=== PATIENT | female | born 1995 | race Caucasian/White ===

== ENCOUNTER → 2017-12-04 14:58 | Outpatient (CLI) | payer BC, SELFPAY | PROVIDERS: Family Provider Family Medicine; PCP Family Medicine; Visit Provider Specialist | DX: R30.0 Dysuria (principal) | CPT/HCPCS: 87086 ==

== ENCOUNTER → 2017-12-22 10:57 | Outpatient (CLI) | payer BC, SELFPAY ==
[2017-12-22 11:34] LABS: Appearance Urine UA CLEAR; Bilirubin Urine UA NEGATIVE (NEGATIVE); Color Urine UA YELLOW; Glucose Urine UA TRACE g/dL (Normal); Ketones Urine UA TRACE (NEGATIVE); Leukocyte Esterase Urine UA NEGATIVE (NEGATIVE); Nitrite Urine UA Negative (Negative); Occult Blood Urine UA NEGATIVE (Negative); Protein Urine UA NEGATIVE (Negative); Specific Gravity Urine UA 1.025 (1.000-1.035); Urobilinogen Urine UA 0.2 E.U./dL (0.2); pH Urine UA 5.5 (4.5-8.0)
[2017-12-22 11:40] LABS: Add Manual Diff / Slide Review NO; Basophils Percent Auto 0.5 % (0-2); Eosinophils Percent Auto 5.2 % (2-4); Hematocrit 36.5 % (36-46); Hemoglobin 12.7 g/dL (12.0-16.0); Lymphocytes Percent Auto 14.8 % (25-40); Mean Corpuscular HGB Conc 34.8 % (30-36); Mean Corpuscular Hemoglobin 30.9 PG (26-34); Mean Corpuscular Volume 88.8 fL (80-100); Monocytes Percent Auto 6.3 % (3-14); Neutrophils Absolute Auto 4500 /uL (3000-5900); Neutrophils Percent Auto 73.2 % (50-75); Platelet Count 187 X10^3/uL (150-400); Red Blood Cell Count 4.11 X10^6/uL (4.0-5.2); Red Cell Distribution Width 12.5 % (11.6-14.8); White Blood Cell Count 6.1 X10^3/uL (4.5-11.0)
[2017-12-22 12:25] LABS: Free T3, Triiodothyronine Free 3.33 pg/mL (2.77-5.27); Free T4, Direct Thyroxine 1.03 ng/dL (0.78-2.19)
[2017-12-22 12:39] LABS: Thyroid Stimulating Hormone 0.46 uIU/mL (0.47-4.68)
[2017-12-22 16:19] LABS: Hepatitis B Surface Antigen NEGATIVE s/c (NEGATIVE); Rubella Antibody IgG 8.8 IU/mL (>15)
[2017-12-22 16:33] LABS: HIV 1 and 2 Antibody NEGATIVE (NEGATIVE); Hep C Virus Ab w/Reflex Quant NEGATIVE s/c (NEGATIVE)
[2017-12-23 13:34] LABS: HSV 2 IGG AB < 0.90 index (< 0.90)
[2017-12-29 11:51] LABS: Rapid Plasma Reagin NON-REACTIVE
== END ==
PROVIDERS: PCP Family Medicine; Visit Provider Specialist
DX: Z34.81 Encounter for supervision of other normal pregnancy, first trimester (principal); Z3A.01 Less than 8 weeks gestation of pregnancy
CPT/HCPCS: 36415; 80055; 81003; 84439; 84443; 84481; 86695; 86696; 86703; 86787; 86803; 86850; 86900; 86901; 87086

== ENCOUNTER → 2018-01-21 13:37 | Oncology outpatient (ONC) | payer BC, SELFPAY ==
[2018-01-21 14:13] VITALS: BP 113/68; PULSE 92; RESP 16; TEMP 36.8
[2018-01-21] MEDS: ONDANSETRON 4 MG/2 ML INJ IV (14:13)
[2018-01-21] MEDS: LACTATED RINGERS 1,000 ML 500 ML IV (14:13)
== END ==
LOC: ONC 13:38
PROVIDERS: Family Provider Family Medicine; PCP Family Medicine; Visit Provider Specialist
DX: O21.1 Hyperemesis gravidarum with metabolic disturbance (principal)
CPT/HCPCS: 96361; 96374; 96375; J2405

== ENCOUNTER → 2018-03-15 12:05 | Outpatient (CLI) | payer BC, SELFPAY ==
--- NOTE | 2018-03-15 12:08 | DI.US.S_ITS ---
PROCEDURE: US THYROID INDICATIONS: THYROMEGALY, ABNORMAL LABS TECHNIQUE: Real-time scanning was performed of the thyroid gland, with image documentation. COMPARISON: None. FINDINGS: Right: Thyroid lobe measures 4.8 x 1.2 x 1.5 cm, and is homogeneous in echotexture. Sub-5 mm complex nodule within the midpole which is solid, hypoechoic, smooth and no internal echogenic foci present. TI-RADS classification is 4 which is moderately suspicious. Left: Thyroid lobe measures 5.7 x 1.3 x 1 6 cm, and is homogenous in echotexture. Isthmus: 3.0 mm thick. IMPRESSION: Sub-5 mm solid nodule within the midpole of the right thyroid otherwise normal thyroid gland. Given the small size, no followup necessary. Dictated by: Kirk WILLSON Interpreted: Se Vasquez MD on 03/15/2018 at 13:58 Approved by: Kaila Salinas M.D. on 03/17/2018 at 9:49
--- NOTE | 2018-03-15 12:08 | DI.US.S_ITS ---
PROCEDURE: US OB >= 14 WEEKS FETUS INDICATIONS: 20 WEEK ANATOMY OUTSIDE/PRIOR DATING DATA: Last menstrual period (LMP): Unknown. LMP-based estimated date of delivery (DIANE): N./A.. First dating scan (date and location): 12/24/17. Estimated date of delivery (DIANE) from first dating scan: 07/30/18. TECHNIQUE: Real-time scanning was performed of the fetus, with image documentation and biometric measurements. Endovaginal scanning: No COMPARISON: [facility], OB >= 14 WEEKS FETUS, 12/24/2017, 8:55. [facility], OB < 14 WEEKS + OB TRANSVAG, 01/08/2018, 12:39. [facility], OB >= 14 WEEKS FETUS, 02/17/2018, 8:57. FINDINGS: General: A single living intrauterine gestation is present. Presentation: Breech. Placenta: Placental position is anterior, without previa. Amniotic fluid index: 15.0 cm, normal range is 5-24 cm. heart rate: 141 beats per minute. Maternal cervical canal: 3.1 cm long. biometrics: Biparietal diameter: 20 weeks 6 days Head circumference: 20 weeks 2 days Abdominal circumference: 20 weeks 4 days Femur length: 21 weeks 0 days Estimated gestational age from initial scan: 20 weeks 3 days Composite gestational age from present scan: 20 weeks 5 days Estimated weight and percentile: 357 g; 64th percentile Measurement variability for biometric dating: +/- 7 days from 14 weeks to 15 weeks 6 days gestation, +/- 10 days from 16 weeks to 21 weeks 6 days gestation, +/- 2 weeks from 22 weeks to 27 weeks 6 days gestation, +/- 3 weeks for 28 weeks gestation or later. weight reference: 4500 g or EFW >90/95% is considered macrosomia or large for gestational age. EFW <10% is small for gestational age. EFW 5% or less is considered intra-uterine growth restriction. Anatomic survey: Neuro: Ventricles are non-dilated at less than 10 mm. Cisterna magna is normal at 3-11 mm. Cerebellum is normal in size and morphology. Nuchal skin fold: Normal at less than 6 mm between 14-21 weeks gestational age. Face: Nose and lips, facial profile are normal. Spine: Not well-seen. Heart: 4-chambered heart is present, with normal ventricular outflow tracts. Diaphragm: Diaphragm is intact. Stomach: Left-sided stomach is present. Kidneys: No hydronephrosis. Normal is less than 5 mm in 2nd trimester, less than 7 mm in 3rd trimester. Cord: 3-vessel cord has orthotopic insertion. Bladder: Normal in size. Extremities: All 4 extremities identified. IMPRESSION: 1. Single living IUP redemonstrated and interval growth is normal. 2. Spine not well visualized otherwise normal anatomy. Dictated by: Kirk Abbasi [facility] Interpreted: Se Vasquez MD on 03/15/2018 at 14:00 Approved by: Se Vasquez M.D. on 03/15/2018 at 16:44
== END ==
PROVIDERS: Family Provider Family Medicine; PCP Family Medicine; Visit Provider Specialist
DX: Z36.89 Encounter for other specified antenatal screening (principal); O99.282 Endocrine, nutritional and metabolic diseases complicating pregnancy, second trimester; E04.1 Nontoxic single thyroid nodule; R79.89 Other specified abnormal findings of blood chemistry; Z3A.20 20 weeks gestation of pregnancy
CPT/HCPCS: 76536; 76811

== ENCOUNTER → 2018-05-20 12:16 | Outpatient (CLI) | payer BC, SELFPAY ==
[2018-05-20 13:59] LABS: Hematocrit 35.5 % (36-46); Hemoglobin 12.2 g/dL (12.0-16.0)
[2018-05-20 14:43] LABS: GTT (PREG) 1 Hour PP 50gm Dose 142 mg/dL (76-139)
== END ==
PROVIDERS: PCP Family Medicine; Visit Provider Specialist
DX: Z3A.25 25 weeks gestation of pregnancy (principal)
CPT/HCPCS: 36415; 82950; 85014; 85018

== ENCOUNTER → 2018-05-21 15:23 | Outpatient (CLI) | payer BC, SELFPAY ==
[2018-05-21 19:21] LABS: Appearance Urine UA SL CLOUDY; Bilirubin Urine UA NEGATIVE (NEGATIVE); Color Urine UA YELLOW; Glucose Urine UA NEGATIVE (Negative); Ketones Urine UA NEGATIVE (NEGATIVE); Leukocyte Esterase Urine UA 1+ (NEGATIVE); Nitrite Urine UA NEGATIVE (Negative); Occult Blood Urine UA NEGATIVE (Negative); Protein Urine UA NEGATIVE (Negative); Specific Gravity Urine UA 1.025 (1.000-1.035); Urobilinogen Urine UA 0.2 E.U./dL (0.2)
[2018-05-21 19:34] LABS: Amorphous Sediment Urine 3+; Bacteria Urine Few (2-10); Calcium Oxalate Crystals Urine Moderate; Squamous Epithelial Cell Urine 1-5 /HPF
[2018-05-21 19:35] LABS: Culture Indicated Urine Specimen Cultured; RBC Urine 0-1/HPF (0-5/HPF); WBC Urine 5-10/HPF (0-5/HPF)
== END ==
PROVIDERS: Family Provider Family Medicine; PCP Family Medicine; Visit Provider Specialist
DX: R30.0 Dysuria (principal)
CPT/HCPCS: 81001; 87086

== ENCOUNTER → 2018-06-03 10:04 | Outpatient (CLI) | payer BC, SELFPAY ==
[2018-06-03 11:59] LABS: Glucose Fasting Gestational 79 mg/dL (76-95)
[2018-06-03 12:21] LABS: Glucose 1 Hour Gest 175 mg/dL (76-180)
[2018-06-03 13:39] LABS: Glucose Tol Interp,Gestational INTERPRETATION
[2018-06-03 13:53] LABS: Glucose 2 Hour Gest 114 mg/dL (76-155)
[2018-06-03 15:31] LABS: Glucose 3 Hour Gest 55 mg/dL (76-140)
== END ==
PROVIDERS: Family Provider Family Medicine; PCP Family Medicine; Visit Provider Specialist
DX: E04.1 Nontoxic single thyroid nodule (principal); R73.09 Other abnormal glucose
CPT/HCPCS: 36415; 82951; 82952

== ENCOUNTER 2018-06-04 09:10 | Outpatient (CLI) | payer BC, SELFPAY ==
--- NOTE | 2018-06-04 14:30 | PM.OBTRLD ---
Visit Information Visit Information Date of evaluation: 06/04/18 Primary OB Provider: Gogo Moore Reason for Evaluation: Yes non-stress test non-stress test reason: other (Low BRIAN) PFSH Medical History Eczema (Acute) PTSD (post-traumatic stress disorder) (Chronic) Constipation (Chronic) Bipolar disorder (Chronic) Depression (Chronic) Anxiety (Chronic) Family History Mother No problems noted. Sister No problems noted. Social History marital status: number of children: 1 household members: spouse and children lives independently: Yes caregiver/support person: No housing: house education level: vocational occupational status: student (nursing school) seatbelt use: always Smoking Status: Never smoker second hand exposure: No alcohol intake: current substance use type: marijuana Family History Mother No problems noted. Sister No problems noted. Social History marital status: number of children: 1 household members: spouse and children lives independently: Yes caregiver/support person: No housing: house education level: vocational occupational status: student (nursing school) seatbelt use: always Smoking Status: Never smoker second hand exposure: No alcohol intake: current substance use type: marijuana Evaluation Evaluation Baseline heart rate: 130 Variability: Moderate (11-25) monitor accelerations: Present monitor decelerations: Absent Contraction Frequency (minutes): 0 Category of Tracing: I Diagnosis, Plan/Disposition Final Diagnosis (1) Decreased amniotic fluid: Current Visit: Yes Status: Acute (2) 30 weeks gestation of : Current Visit: Yes Status: Acute Plan/Disposition Plan: Patient with decreased amniotic fluid at 30 weeks. NST is reactive. She will be followed with weekly ultrasound for amniotic fluid volumes and NSTs. OB Disposition: home
== END 2018-06-04 10:20 | disposition home or self-care (01) ==
LOC: LABOR 10:09 → OB 14:36
PROVIDERS: Family Provider Family Medicine; PCP Family Medicine; Visit Provider Specialist
DX: O41.03X0 Oligohydramnios, third trimester, not applicable or unspecified (principal); Z3A.30 30 weeks gestation of pregnancy
CPT/HCPCS: 59025; 84112; G0378; G0379

== ENCOUNTER 2018-06-10 15:26 | Outpatient (CLI) | payer BC, SELFPAY ==
--- NOTE | 2018-06-10 15:55 | PM.OBTRLD ---
Visit Information Visit Information Date of evaluation: 06/10/18 Primary OB Provider: Gogo Moore Reason for Evaluation: Yes non-stress test non-stress test reason: other (Low amniotic fluid volume) PFSH Medical History Eczema (Acute) PTSD (post-traumatic stress disorder) (Chronic) Constipation (Chronic) Bipolar disorder (Chronic) Depression (Chronic) Anxiety (Chronic) Family History Mother No problems noted. Sister No problems noted. Social History marital status: number of children: 1 household members: spouse and children lives independently: Yes caregiver/support person: No housing: house education level: vocational occupational status: student (nursing school) seatbelt use: always Smoking Status: Never smoker second hand exposure: No alcohol intake: current substance use type: marijuana Family History Mother No problems noted. Sister No problems noted. Social History marital status: number of children: 1 household members: spouse and children lives independently: Yes caregiver/support person: No housing: house education level: vocational occupational status: student (nursing school) seatbelt use: always Smoking Status: Never smoker second hand exposure: No alcohol intake: current substance use type: marijuana Evaluation Evaluation Baseline heart rate: 130 Variability: Moderate (11-25) monitor accelerations: Present monitor decelerations: Absent Diagnosis, Plan/Disposition Final Diagnosis (1) Decreased amniotic fluid: Current Visit: No Status: Acute (2) 32 weeks gestation of : Current Visit: Yes Status: Acute Plan/Disposition Plan: reactive NST follow-up weekly OB Disposition: home
== END 2018-06-10 16:11 | disposition home or self-care (01) ==
LOC: LABOR 16:11 → OB 06-14 08:42
PROVIDERS: Family Provider Family Medicine; PCP Family Medicine; Visit Provider Specialist
DX: O41.03X0 Oligohydramnios, third trimester, not applicable or unspecified (principal); Z3A.32 32 weeks gestation of pregnancy
CPT/HCPCS: 59025; 87086; G0378; G0379

== ENCOUNTER → 2018-06-10 16:30 | Outpatient (CLI) | payer BC, SELFPAY | PROVIDERS: Family Provider Family Medicine; PCP Family Medicine; Visit Provider Specialist | DX: R30.0 Dysuria (principal) | CPT/HCPCS: 87086 ==

== ENCOUNTER 2018-06-18 12:59 | Outpatient (CLI) | payer BC, SELFPAY ==
--- NOTE | 2018-06-18 13:28 | PM.OBTRLD ---
Visit Information Visit Information Date of evaluation: 06/18/18 Primary OB Provider: Gogo Moore Reason for Evaluation: Yes non-stress test non-stress test reason: other (Decreased amniotic fluid) PFSH Medical History Eczema (Acute) PTSD (post-traumatic stress disorder) (Chronic) Constipation (Chronic) Bipolar disorder (Chronic) Depression (Chronic) Anxiety (Chronic) Family History Mother No problems noted. Sister No problems noted. Social History marital status: number of children: 1 household members: spouse and children lives independently: Yes caregiver/support person: No housing: house education level: vocational occupational status: student (nursing school) seatbelt use: always Smoking Status: Never smoker second hand exposure: No alcohol intake: current substance use type: marijuana Family History Mother No problems noted. Sister No problems noted. Social History marital status: number of children: 1 household members: spouse and children lives independently: Yes caregiver/support person: No housing: house education level: vocational occupational status: student (nursing school) seatbelt use: always Smoking Status: Never smoker second hand exposure: No alcohol intake: current substance use type: marijuana Evaluation Evaluation Baseline heart rate: 150 Variability: Moderate (11-25) monitor accelerations: Present monitor decelerations: Absent Category of Tracing: I Diagnosis, Plan/Disposition Final Diagnosis (1) Decreased amniotic fluid: Current Visit: No Status: Acute (2) 34 weeks gestation of : Current Visit: Yes Status: Acute Plan/Disposition Plan: Continue weekly nonstress tests and BRIAN OB Disposition: home
== END 2018-06-18 13:36 | disposition home or self-care (01) ==
LOC: OB 06-21 10:52
PROVIDERS: PCP Family Medicine; Visit Provider Specialist
DX: O41.03X0 Oligohydramnios, third trimester, not applicable or unspecified (principal); Z3A.34 34 weeks gestation of pregnancy
CPT/HCPCS: 59025; 87591; G0378; G0379

== ENCOUNTER → 2018-06-18 13:47 | Outpatient (CLI) | payer BC, SELFPAY ==
[2018-06-18 17:32] LABS: Urine N gonorrhoeae NOT DETECTED
[2018-06-18 17:35] LABS: Urine Chlamydia NOT DETECTED
== END ==
PROVIDERS: PCP Family Medicine; Visit Provider Specialist
DX: Z34.83 Encounter for supervision of other normal pregnancy, third trimester (principal); Z3A.34 34 weeks gestation of pregnancy
CPT/HCPCS: 87491; 87591

== ENCOUNTER 2018-06-24 13:38 | Outpatient (CLI) | payer BC, SELFPAY ==
--- NOTE | 2018-06-24 16:30 | PM.OBTRLD ---
Visit Information Visit Information Date of evaluation: 06/24/18 Primary OB Provider: Gogo Moore Reason for Evaluation: Yes non-stress test Comments/Additional reasons for admission: Patient also complaining of back pain Vital Signs Vital Signs: BP121/76 pulse of 88 temperature 97.8? PFSH Medical History Eczema (Acute) PTSD (post-traumatic stress disorder) (Chronic) Constipation (Chronic) Bipolar disorder (Chronic) Depression (Chronic) Anxiety (Chronic) Family History Mother No problems noted. Sister No problems noted. Social History marital status: number of children: 1 household members: spouse and children lives independently: Yes caregiver/support person: No housing: house education level: vocational occupational status: student (nursing school) seatbelt use: always Smoking Status: Never smoker second hand exposure: No alcohol intake: current substance use type: marijuana Family History Mother No problems noted. Sister No problems noted. Social History marital status: number of children: 1 household members: spouse and children lives independently: Yes caregiver/support person: No housing: house education level: vocational occupational status: student ([employer] school) seatbelt use: always Smoking Status: Never smoker second hand exposure: No alcohol intake: current substance use type: marijuana Review of Systems Review of Systems Patient is complaining of back pain and wanted to make sure she was not having contractions. No leaking of fluid or vaginal bleeding. Good movement. She did have emesis earlier today. No fevers. She does not feel nauseated at this time. She has chronic constipation with no change at this time. All systems reviewed & are unremarkable except as noted in HPI and below Exam Narrative Exam Narrative: Patient's abdomen is soft, nontender. Patient has no CVA tenderness. She does not have tenderness to her lower back muscles. Objective Labs Labs: Laboratory Results - last 24 hr 06/24/18 14:59 Urine Color Yellow Urine Appearance Clear Urine pH 6.0 Ur Specific [place] 1.025 Urine Protein Negative Urine Glucose (UA) Negative Urine Ketones Negative Urine Occult Blood Negative Urine Nitrate Negative Urine Bilirubin Negative Urine Urobilinogen 0.2 Ur Leukocyte Esterase Trace H Urine RBC None seen Urine WBC 5-10/hpf H Ur Squamous Epith Cells 10-30 /hpf H D Urine Bacteria None seen Ur Culture Indicated? Cult not indicated Evaluation Evaluation Baseline heart rate: 135 Variability: Moderate (11-25) monitor accelerations: Present monitor decelerations: Absent Contraction Frequency (minutes): 0 Category of Tracing: I Laboratory results: Laboratory Tests 06/24/18 14:59 Urine Color Yellow Urine Appearance Clear Urine pH 6.0 Ur Specific [place] 1.025 Urine Protein Negative Urine Glucose (UA) Negative Urine Ketones Negative Urine Occult Blood Negative Urine Nitrate Negative Urine Bilirubin Negative Urine Urobilinogen 0.2 Ur Leukocyte Esterase Trace H Urine RBC None seen Urine WBC 5-10/hpf H Ur Squamous Epith Cells 10-30 /hpf H D Urine Bacteria None seen Ur Culture Indicated? Cult not indicated Diagnosis, Plan/Disposition Final Diagnosis (1) Back pain affecting in third trimester: Current Visit: No Status: Acute Problem details: There does not appear to be labor causing back pain. Urine is negative for evidence of infection. Reassurance (2) 35 weeks gestation of : Current Visit: No Status: Acute Plan/Disposition Plan: Patient is to continue her routine OB appointments. Call if she has any changes. OB Disposition: home
== END 2018-06-24 15:05 | disposition home or self-care (01) ==
LOC: LABOR 14:29 → OB 06-28 12:54
PROVIDERS: PCP Family Medicine; Visit Provider Specialist
DX: O26.893 Other specified pregnancy related conditions, third trimester (principal); M54.9 Dorsalgia, unspecified; Z3A.35 35 weeks gestation of pregnancy
CPT/HCPCS: 59025; 59050; G0378; G0379

== ENCOUNTER → 2018-07-02 10:32 | Outpatient (CLI) | payer BC, SELFPAY ==
[2018-07-03 08:32] LABS: Strep Grp B PCR NEG for Grp B Strep
== END ==
PROVIDERS: PCP Family Medicine; Visit Provider Specialist
DX: Z34.83 Encounter for supervision of other normal pregnancy, third trimester (principal); Z3A.36 36 weeks gestation of pregnancy
CPT/HCPCS: 87653

== ENCOUNTER 2018-07-06 09:46 | Observation (INO) | payer BC, SELFPAY ==
--- NOTE | 2018-07-06 10:23 | PM.OBTRLD ---
Visit Information Visit Information Date of evaluation: 07/06/18 Primary OB Provider: Gogo Moore Reason for Evaluation: Yes non-stress test non-stress test reason: other (Decreased BRIAN) PFSH Medical History Eczema (Acute) PTSD (post-traumatic stress disorder) (Chronic) Constipation (Chronic) Bipolar disorder (Chronic) Depression (Chronic) Anxiety (Chronic) Family History Mother No problems noted. Sister No problems noted. Social History marital status: number of children: 1 household members: spouse and children lives independently: Yes caregiver/support person: No housing: house education level: vocational occupational status: student (nursing school) seatbelt use: always Smoking Status: Never smoker second hand exposure: No alcohol intake: current substance use type: marijuana Family History Mother No problems noted. Sister No problems noted. Social History marital status: number of children: 1 household members: spouse and children lives independently: Yes caregiver/support person: No housing: house education level: vocational occupational status: student (nursing school) seatbelt use: always Smoking Status: Never smoker second hand exposure: No alcohol intake: current substance use type: marijuana Evaluation Evaluation Baseline heart rate: 140 Variability: Moderate (11-25) monitor accelerations: Present monitor decelerations: Absent Contraction Frequency (minutes): 0 Diagnosis, Plan/Disposition Final Diagnosis (1) Decreased amniotic fluid: Current Visit: No Status: Acute (2) 36 weeks gestation of : Current Visit: No Status: Acute Plan/Disposition Plan: Reactive nonstress test OB Disposition: home
== END 2018-07-06 10:12 | disposition home or self-care (01) ==
LOC: LABOR 09:47
PROVIDERS: Admitting Provider Specialist; PCP Family Medicine; Visit Provider Specialist
DX: O41.03X0 Oligohydramnios, third trimester, not applicable or unspecified (principal); Z3A.36 36 weeks gestation of pregnancy
CPT/HCPCS: 59025; G0378; G0379

== ENCOUNTER 2018-07-23 05:53 | Inpatient (IN) | payer BC, SELFPAY ==
[2018-07-23] VITALS (7 sets, daily range): BP systolic 103–110; BP diastolic 66–73; PULSE 74–78; RESP 15–18; TEMP 36.2–36.9; O2SAT 99–100
--- NOTE | 2018-07-23 | PATH_ITS ---
[facility] Accession Number: [id number] . 01 Material submitted: . SEGEMENTS OF RIGHT/LEFT FALLOPIAN TUBES . 01 Clinical history: . SEE NOTES . 02 Diagnosis: Segments of Right and Left Fallopian Tubes (Sterilization Procedure): No significant pathologic change. MRV/07/26/2018 . 02 Electronically signed: . Julio Vasquez MD, Pathologist NPI- [id number] . 01 Gross description: . Received in one formalin-filled container, labeled with the patient's name and labeled segments right and left fallopian tubes, are two non-fimbriated, rough, cylindrical-shaped portions of tissue. The first measures 1.8 x 1.0 x 0.7 cm. The specimen is inked blue, sectioned into four pieces, and entirely submitted in cassette A1. The second piece measures 1.5 x 0.6 x 0.6 cm. The specimen is inked blue, sectioned into four pieces, and entirely submitted in cassette A2. ([id number]) /FRR . 02 Pathologist provided ICD-10: Z30.2 . 02 CPT . 517457 Performed at: 01 [facility] [address], [place], [place] [id number] MD Julio Pichardo MD Phone: [phone] Performed at: 02 [facility] [address] [place], [place] [id number] MD Sulma Bergeron MD Phone: [phone]
[2018-07-23 07:17] LABS: Add Manual Diff / Slide Review NO; Basophils Absolute Auto 0 /uL (0-100); Basophils Percent Auto 0.6 % (0-2); Eosinophils Absolute Auto 100 /uL (0-450); Hematocrit 36.1 % (36-46); Hemoglobin 12.4 g/dL (12.0-16.0); Lymphocytes Absolute Auto 2100 /uL (1100-4500); Lymphocytes Percent Auto 28.3 % (25-40); Mean Corpuscular HGB Conc 34.3 % (30-36); Mean Corpuscular Hemoglobin 30.1 PG (26-34); Mean Corpuscular Volume 87.6 fL (80-100); Monocytes Absolute Auto 700 /uL (0-900); Monocytes Percent Auto 9.2 % (3-14); Neutrophils Absolute Auto 4500 /uL (1500-7000); Neutrophils Percent Auto 60.9 % (50-75); Platelet Count 180 X10^3/uL (150-400); Red Blood Cell Count 4.12 X10^6/uL (4.0-5.2); Red Cell Distribution Width 12.9 % (11.6-14.8); White Blood Cell Count 7.4 X10^3/uL (4.5-11.0)
--- NOTE | 2018-07-23 07:29 | PM.PREOP ---
Pre-operative Note Interval Note History & Physical reviewed/Exam performed by Physician: Yes Changes to H&P: No
--- NOTE | 2018-07-23 07:29 | PM.OBHP.1 ---
OB HPI Date/Time Date of admission: 07/23/18 Date Patient Seen: 07/23/18 Time Patient Seen: 07:30 History of Present Condition Chief complaint: [id number] : 3 Para: 1 Estimated Date of Delivery: 07/30/18 Estimated Gestational Age (weeks): 39 Narrative: Lydia Davis is a 23 year old female admitted for repeat section Indications Operative indications ( section): previous uterine surgery History of Present care: good care, initiated at week # (14), number of visits (15) and pounds weight gain (33) Dating criteria: LMP confirmed by 1st trimester US Ultrasounds: normal mid trimester US Obstetrical complications: none Preadmission Labs Blood type: O (+) positive -: Antibody screen: negative, GBS status: negative, HBsAG: negative, HIV: negative, HSV 1: positive, HSV 2: negative and RPR/VDLR: negative -: Chlamydia screen: not detected and Gonorrhea screen: not detected -: Rubella: not immune and Varicella: immune HCAB: negative 1 hr GTT: 142 3 hr GTT: 1 hr (175), 2 hr (114) and 3 hr (55) Fasting blood glucose: 79 Prior (ies) History: 06/28/12 39 week breech presentation 7 lb 2 oz, male Evaluation Evaluation Baseline heart rate: 135 Variability: Moderate (11-25) monitor accelerations: Present monitor decelerations: Absent Contraction Frequency (minutes): 0 Category of Tracing: I Laboratory results: Laboratory Tests 07/23/18 07:00 WBC 7.4 RBC 4.12 Hgb 12.4 Hct 36.1 MCV 87.6 MCH 30.1 MCHC 34.3 RDW 12.9 Plt Count 180 Neut % (Auto) 60.9 Lymph % (Auto) 28.3 [place] % (Auto) 9.2 Eos % (Auto) 1.0 L Baso % (Auto) 0.6 Neut # (Auto) 4500 Lymph # (Auto) 2100 [place] # (Auto) 700 Eos # (Auto) 100 Baso # (Auto) 0 PFSH Medical History (Updated 07/06/18 @ 10:24 by Gogo Moore MD) Eczema (Acute) PTSD (post-traumatic stress disorder) (Chronic) Constipation (Chronic) Bipolar disorder (Chronic) Depression (Chronic) Anxiety (Chronic) Family History Mother No problems noted. Sister No problems noted. Social History marital status: number of children: 1 household members: spouse and children lives independently: Yes caregiver/support person: No housing: house education level: vocational occupational status: student (nursing school) seatbelt use: always Smoking Status: Never smoker second hand exposure: No alcohol intake: current substance use type: marijuana Family History Mother No problems noted. Sister No problems noted. Social History marital status: number of children: 1 household members: spouse and children lives independently: Yes caregiver/support person: No housing: house education level: vocational occupational status: student (nursing school) seatbelt use: always Smoking Status: Never smoker second hand exposure: No alcohol intake: current substance use type: marijuana Meds Home Medications Medication Instructions Recorded Confirmed Type clobetasol 0.05 % lotion See Rx Instructions TOP BID #59 ml 09/21/17 02/15/18 Rx 1 tab PO DAILY #100 tab 12/04/17 02/15/18 Rx vitamin,calcium,tjbdwyqp-[id number] acid tablet Allergies Allergy/AdvReac Type Severity Reaction Status Date / Time cefaclor [CEFACLOR] Allergy Intermediate Verified 02/15/18 15:24 Penicillins [PENICILLINS] Allergy Intermediate Verified 02/15/18 15:24 Review of Systems Review of Systems Good movement no leakage of fluid All systems reviewed & are unremarkable except as noted in HPI and below Exam Vital Signs (past 8 hours): Blood pressure 119/75, pulse of 107 Narrative Exam Narrative: HEENT exam within normal limits. Lungs are clear to auscultation percussion. Heart is regular rate and rhythm no S3-S4 or murmurs abdomen is soft, gravid, nontender. extremities without edema and nontender. Objective Labs Result Diagrams: 07/23/18 07:00 Labs: Laboratory Results - last 24 hr 07/23/18 07:00 WBC 7.4 RBC 4.12 Hgb 12.4 Hct 36.1 MCV 87.6 MCH 30.1 MCHC 34.3 RDW 12.9 Plt Count 180 Neut % (Auto) 60.9 Lymph % (Auto) 28.3 [place] % (Auto) 9.2 Eos % (Auto) 1.0 L Baso % (Auto) 0.6 Neut # (Auto) 4500 Lymph # (Auto) 2100 [place] # (Auto) 700 Eos # (Auto) 100 Baso # (Auto) 0 Assessment and Plan Assessment and Plan Assessment and Plan narrative: Thirty-nine week gestation with prior section for repeat low-transverse section. Patient also is requesting tubal ligation. Her consent form was signed on 07/13/2016. Time Spent with Patient Total time spent with greater than 50% in coordination of care (as documented) at patient's floor/unit and/or counseling patient:: less than 15 minutes
[2018-07-23] MEDS: LACTATED RINGERS 1,000 ML 100 ML IV ×3 (07:40→21:47)
[2018-07-23] MEDS: CLINDAMYCIN 900 MG/50 ML PIGGYBACK 50 MG IV (07:52)
[2018-07-23] MEDS: GENTAMICIN 80 MG in SODIUM CHLORIDE 0.9% 100 ML 102 ML IV (08:02)
--- NOTE | 2018-07-23 08:18 | SUR.OPER ---
Supine on Padded OR bed, head on pillow, safety belt at thigh, arms secured on padded arm boards at <90 degrees abduction. Bump under right buttock. Legs uncrossed with pillow under knees, gel pad to heels, tape over blanket to lower legs.
--- NOTE | 2018-07-23 08:24 | SUR.OPER ---
CORD BLOOD AND PLACENTA TO LABOR AND DELIVERY
--- NOTE | 2018-07-23 09:11 | P.OP_ITS ---
Operative Date/Time/Diagnoses Date of procedure: 07/23/18 Time of procedure: 09:04 Pre-op diagnosis: 39 week gestation with prior section and undesired fertility Post-op diagnosis: same Procedure & Clinicians Procedure: Repeat low-transverse section with bilateral tubal ligation Same procedure as scheduled: Yes Indications: Term with prior section and undesired fertility requesting repeat section and tubal ligation Surgeon: Gogo Moore Call Center Coordinator: Nitish Yao Yes if Unassisted: No Anesthesia Type: Spinal Operative Notes Findings: Normal tubes, ovaries, and uterus. Female infant weighing 7 lb 14 oz Closure Type: primary Specimen(s): other (portion of fallopian tubes) Applied: catheter (flores) Estimated Blood Loss (mL): 350 Blood products transfused: none Procedure in detail: The patient was brought to the operating room where she underwent a spinal for anesthesia. She was placed in a supine position with a left lateral tilt. A Flores catheter was placed. Pulsatile stockings were placed and functional throughout the case. Clindamycin and gentamicin were given IV prior to the incision. Warming was in place. The patient was prepped and draped in usual sterile fashion. The prior low transverse incision was removed with a scalpel and the incision was carried down to the fascial layer which was incised transversely. The midline attachments are superiorly and inferiorly. The rectus muscles were in the midline and the peritoneal incision was made with no damage to internal structures. The peritoneum was incised and superiorly and inferiorly. Bladder blade was placed and a bladder flap was developed and the bladder held away from the lower uterine segment. An incision was made in the uterus with the scalpel and the incision was extended with stretching. The head was elevated out of the abdomen and with fundal pressure the baby was delivered. The infant was bulb suctioned for clear fluid and handed off to the warmer. Cord blood was collected. The placenta delivered spontaneously with traction. The uterus was cleaned with clean laps. The uterine incision was closed in 2 layers of 0 chromic suture the first a running locking layer the second an imbricating layer. The bladder peritoneum was repaired with 2-0 Polysorb suture. The gutters were cleaned of any remaining fluids and ovaries and tubes were observed to be normal. A segment of each fallopian tube was tied off x2 with 0 plain suture and the intervening section removed. Adequate hemostasis was noted. The perineum was closed with 2-0 Polysorb suture. The fascia layer was closed with 0 Polysorb suture with 2 stitches. The incision was irrigated and adequate hemostasis was obtained with the Bovie. The incision was closed with interrupted 3-0 Polysorb sutures and then a subcuticular stitch of 4-0 Polysorb suture. Steri-Strips were placed. The uterus was massaged to remove any clots. The patient went to recovery room in good condition. Counts of instruments and sponges were correct. Complications: none Condition: stable Disposition: other ( center) Plan for aftercare: Routine post section
--- NOTE | 2018-07-23 09:33 | SUR.PHASEI ---
anthony pad changed upon arrival to pacu to pacu for small to mod amt of drainage with small clots,
--- NOTE | 2018-07-23 09:35 | SUR.PHASEI ---
PER REPORT FORM ANESTHESIA, PT ON IV #3 LR , TOTAL PACU FLUIDS = 200
[2018-07-23] MEDS: DOCUSATE 250 MG CAPSULE PO (11:18)
[2018-07-23] MEDS: OXYCODONE/ACETAMINOPHEN 5/325 TABLET 1 TAB PO ×2 (11:21→21:33)
[2018-07-23] MEDS: KETOROLAC 30 MG/ML VIAL IV ×3 (11:48→23:50)
[2018-07-23] MEDS: OXYCODONE/ACETAMINOPHEN 5/325 TABLET 2 TAB PO ×2 (13:00→17:25)
[2018-07-23] MEDS: OXYTOCIN 10 UNIT/ML VIAL IM (14:58)
[2018-07-24] MEDS: OXYCODONE/ACETAMINOPHEN 5/325 TABLET 1 TAB PO ×2 (01:37→05:44)
[2018-07-24 05:43] VITALS: TEMP 37
[2018-07-24] MEDS: KETOROLAC 30 MG/ML VIAL IV (05:43)
[2018-07-24 05:44] VITALS: TEMP 37
[2018-07-24 06:51] LABS: Hematocrit 30.2 % (36-46); Hemoglobin 10.4 g/dL (12.0-16.0)
[2018-07-24] MEDS: DOCUSATE 250 MG CAPSULE PO (09:08)
[2018-07-24] MEDS: OXYCODONE/ACETAMINOPHEN 5/325 TABLET 2 TAB PO (10:04)
--- NOTE | 2018-07-24 11:43 | PM.DS.1 ---
History of Present Illness Date Patient Seen: 07/24/18 Time Patient Seen: 11:43 Chief complaint: [id number] Narrative: day #1 Repeat section with bilateral tubal ligation Discharge Providers Date of admission: 07/23/18 05:53 Discharge Date: 07/24/18 Primary care physician: Floridalma Andrew MD Consults: 07/23/18 11:26 Consult to [employer] Routine Comment: Discharge provider: Gogo Moore MD Summary Discharge Diagnosis: Status post repeat low-transverse section with bilateral tubal ligation Hospital Course: Patient underwent a repeat low-transverse section with bilateral tubal ligation. She had her Pride catheter removed and was ambulatory. She states her pain is under control with her pain medicine. No nausea. She has not passed gas yet but feels that it is coming. Patient's blood pressure is 108/70, pulse 69, temperature 98.5?. Patient's abdomen is soft, nontender. Uterus is firm, at U, nontender. Dressing is clean, dry, intact. Mild lochia. Extremities without edema and nontender. Patient is O positive. She is rubella nonimmune so received a rubella vaccine prior to discharge. Status at Discharge Cognitive/behavioral status at discharge: oriented Functional status at discharge: independent ambulation Overall status at discharge: patient is progressing back to baseline Time Spent with Patient Less than 30 minutes Exam Vital Signs (past 8 hours): - 07/24/18 05:43 07/24/18 05:44 Temperature 98.6 F 98.6 F Oxygen Delivery Method Room Air Objective Labs Result Diagrams: 07/24/18 06:43 Labs: Laboratory Results - last 24 hr 07/24/18 06:43 Hgb 10.4 L Hct 30.2 L Discharge Plan Discharge Plan Patient Disposition: Home Discharge Med Rec/Prescriptions Prescriptions: New oxycodone-acetaminophen 5-325 mg Tablet 2 tab PO Q4HR PRN (Reason: Pain, Severe (7-10)) Qty: 40 RF: 0 ibuprofen 600 mg Tablet 600 mg PO Q6HR PRN (Reason: As Needed For Fever/Mild Pain) Qty: 30 RF: 0 ferrous gluconate 324 mg (37.5 mg iron) tablet 324 mg PO DAILY Qty: 30 RF: 0 docusate sodium 250 mg Capsule 250 mg PO PRN PRN (Reason: prevent constipation) Qty: 20 RF: 0 Continued prenat.vits,akil,hru-ghfl-svjru [ Vitamin] tablet 1 tab PO DAILY Qty: 100 RF: 3 clobetasol 0.05 % lotion See Rx Instructions TOP BID Qty: 59 RF: 1 Follow up/Referrals: Gogo Moore MD [Physician] - 1 Week (Incision check) Floridalma Andrew MD [Primary Care Provider] - Provider Discharge Instructions Diet: Regular Activity: Nothing in vagina for 4 weeks do not lift over 20 pounds Skin/Wound/Dressing Care Report to your healthcare provider any signs of infection, such as:: chills, fever, increased pain and unusual redness Discharge Data Primary Care Provider: Floridalma Andrew Attending Provider: Gogo Moore Admit Date/Time: 07/23/18 05:53
--- NOTE | 2018-07-24 11:47 | P.DS_ITS ---
History of Present Illness Date Patient Seen: 07/24/18 Time Patient Seen: 11:43 Chief complaint: [id number] Narrative: day #1 Repeat section with bilateral tubal ligation Discharge Providers Date of admission: 07/23/18 05:53 Discharge Date: 07/24/18 Primary care physician: Floridalma Andrew MD Consults: 07/23/18 11:26 Consult to [employer] Routine Comment: Discharge provider: Gogo Moore MD Summary Discharge Diagnosis: Status post repeat low-transverse section with bilateral tubal ligation Hospital Course: Patient underwent a repeat low-transverse section with bilateral tubal ligation. She had her Pride catheter removed and was ambulatory. She states her pain is under control with her pain medicine. No nausea. She has not passed gas yet but feels that it is coming. Patient's blood pressure is 108/70, pulse 69, temperature 98.5?. Patient's abdomen is soft, nontender. Uterus is firm, at U, nontender. Dressing is clean, dry, intact. Mild lochia. Extremities without edema and nontender. Patient is O positive. She is rubella nonimmune so received a rubella vaccine prior to discharge. Status at Discharge Cognitive/behavioral status at discharge: oriented Functional status at discharge: independent ambulation Overall status at discharge: patient is progressing back to baseline Time Spent with Patient Less than 30 minutes Exam Vital Signs (past 8 hours): - 07/24/18 05:43 07/24/18 05:44 Temperature 98.6 F 98.6 F Oxygen Delivery Method Room Air Objective Labs Result Diagrams: 07/24/18 06:43 Labs: Laboratory Results - last 24 hr 07/24/18 06:43 Hgb 10.4 L Hct 30.2 L Discharge Plan Discharge Plan Patient Disposition: Home Discharge Med Rec/Prescriptions Prescriptions: New oxycodone-acetaminophen 5-325 mg Tablet 2 tab PO Q4HR PRN (Reason: Pain, Severe (7-10)) Qty: 40 RF: 0 ibuprofen 600 mg Tablet 600 mg PO Q6HR PRN (Reason: As Needed For Fever/Mild Pain) Qty: 30 RF: 0 ferrous gluconate 324 mg (37.5 mg iron) tablet 324 mg PO DAILY Qty: 30 RF: 0 docusate sodium 250 mg Capsule 250 mg PO PRN PRN (Reason: prevent constipation) Qty: 20 RF: 0 Continued prenat.vits,akil,nby-ikpl-shtou [ Vitamin] tablet 1 tab PO DAILY Qty: 100 RF: 3 clobetasol 0.05 % lotion See Rx Instructions TOP BID Qty: 59 RF: 1 Follow up/Referrals: Gogo Moore MD [Physician] - 1 Week (Incision check) Floridalma Andrew MD [Primary Care Provider] - Provider Discharge Instructions Diet: Regular Activity: Nothing in vagina for 4 weeks do not lift over 20 pounds Skin/Wound/Dressing Care Report to your healthcare provider any signs of infection, such as:: chills, fever, increased pain and unusual redness Discharge Data Primary Care Provider: Floridalma Andrew Attending Provider: Gogo Moore Admit Date/Time: 07/23/18 05:53
[2018-07-24 12:36] VITALS: BP 108/70; PULSE 69; RESP 16; TEMP 36.9
[2018-07-24] MEDS: IBUPROFEN 600 MG TABLET PO (13:02)
[2018-07-24] MEDS: MEASLES,MUMPS,RUBELLA VACC/PF 0.5 ML VIAL SUBCUT (13:18)
== END 2018-07-24 14:19 | disposition home or self-care (01) | DRG 784 ==
PROVIDERS: Admitting Provider Specialist; PCP Family Medicine; Visit Provider Specialist
PROC: 10D00Z1 Extraction of Products of Conception, Low, Open Approach (ICD-10-PCS; CPT 59514; principal; 2018-07-23 07:45)
DX: O34.219 Maternal care for unspecified type scar from previous cesarean delivery (principal); D62 Acute posthemorrhagic anemia; Z3A.39 39 weeks gestation of pregnancy; Z37.0 Single live birth; D64.9 Anemia, unspecified
CPT/HCPCS: 36415; 58611; 59050; 59510; 59514; 85014; 85018; 85025; 86850; 86900; 86901; J1100; J1885; J2274; J2405; J2590

== ENCOUNTER → 2018-09-17 10:38 | Outpatient (CLI) | payer BC, SELFPAY ==
--- NOTE | 2018-09-17 10:40 | DI.US.S_ITS ---
LIMITED ULTRASOUND OF RIGHT BREAST: 09/17/2018 CLINICAL: Palpable right breast lump in a post- patient. No prior exams were available for comparison. Real-time and Doppler ultrasound of the right breast upper outer quadrant were performed. Calles scale images of the real-time examination were reviewed. Targeted ultrasound of the area of the patient's focal palpable concern in the right breast centered at the 11:30 position 4-5 cm from the nipple demonstrates no underlying mass or abnormality. IMPRESSION: NEGATIVE 1) Targeted ultrasound of the area of the patient's focal palpable concern in the right breast centered at the 11:30 position 4-5 cm from the nipple demonstrates no underlying mass or abnormality. Recommend clinical follow-up for further evaluation and management of the patient's reported symptoms, with follow-up imaging as clinically indicated. 2) There is no sonographic evidence of malignancy in the imaged areas of the right breast. Annual screening mammography beginning at age 40 is recommended, unless earlier high-risk screening is warranted due to individual patient risk factors for the development of breast malignancy. The patient is advised to monitor her breasts and to return sooner for re-evaluation should she feel anything grow or change. This exam was interpreted at Station ID: [id number]. Electronically Signed By: Tanner Scruggs M.D. ecl/:09/17/2018 13:13:42 letter sent: Clinical Evaluation Ultrasound BI-RADS: 1 Negative
== END ==
PROVIDERS: PCP Family Medicine; Visit Provider Specialist
DX: O92.29 Other disorders of breast associated with pregnancy and the puerperium (principal)
CPT/HCPCS: 76642

== ENCOUNTER → 2019-03-01 11:50 | Outpatient (CLI) | payer BC, SELFPAY ==
--- NOTE | 2019-03-01 11:52 | DI.RAD.S_ITS ---
PROCEDURE: XR FOOT RT MIN 3V INDICATIONS: 5th toe nodule, pain great toe TECHNIQUE: 3 views of the foot were acquired. COMPARISON: None. FINDINGS: Bones: No fractures or dislocations. No suspicious bony lesions. No discrete osseous lesion. Slight bowing bunionette deformity of the fifth metatarsal Soft tissues: No tibiotalar joint effusion. Achilles tendon appears normal. IMPRESSION: No discrete osseous lesion identified. Further evaluation could be performed with contrast-enhanced MRI to assess soft tissues. Slight fifth metatarsal bunionette deformity Dictated by: Se Vasquez M.D. on 03/01/2019 at 15:22 Approved by: Se Vasquez M.D. on 03/01/2019 at 15:25
--- NOTE | 2019-03-01 11:52 | DI.RAD.S_ITS ---
PROCEDURE: XR FOOT LT MIN 3V INDICATIONS: 5th toe nodule, pain great toe TECHNIQUE: 3 views of the foot were acquired. COMPARISON: [facility], CR, XR FOOT RT MIN 3V, 03/01/2019, 11:51. FINDINGS: Bones: No fractures or dislocations. No suspicious bony lesions. Fifth metatarsal bowing bunionette deformity. Soft tissues: No tibiotalar joint effusion. Achilles tendon appears normal. IMPRESSION: Fifth metatarsal bunionette deformity otherwise negative examination as above. If the patient's pain or other symptoms persist, consider further evaluation with MRI Dictated by: Se Vasquez M.D. on 03/01/2019 at 15:25 Approved by: Se Vasquez M.D. on 03/01/2019 at 15:26
== END ==
PROVIDERS: PCP Family Medicine; Visit Provider Family Medicine
DX: R22.41 Localized swelling, mass and lump, right lower limb (principal); R22.42 Localized swelling, mass and lump, left lower limb; M21.622 Bunionette of left foot
CPT/HCPCS: 73630

== ENCOUNTER → 2019-04-28 09:50 | Outpatient (CLI) | payer BC, SELFPAY ==
--- NOTE | 2019-04-28 09:52 | DI.US.S_ITS ---
PROCEDURE: US ABDOMEN LIMITED INDICATIONS: PERSISTENT EPIGASTRIC, RUQ PAIN TECHNIQUE: Real-time focused scanning was performed of the abdomen, with image documentation. COMPARISON: None. FINDINGS: Normal appearance of the liver. No gallstones identified. Normal gallbladder wall. No pericholecystic fluid. Negative sonographic London sign. No biliary dilatation. Normal pancreas. Spleen is prominent at 13.5 cm. IMPRESSION: 1. Prominent size of the spleen; otherwise no source for epigastric pain identified. Dictated by: Kirk WILLSON Interpreted: Monica Ac MD on 04/28/2019 at 11:32 Approved by: Monica cA M.D. on 04/28/2019 at 16:38
== END ==
PROVIDERS: PCP Family Medicine; Visit Provider Family Medicine
DX: R10.13 Epigastric pain (principal); R10.11 Right upper quadrant pain
CPT/HCPCS: 76705

== ENCOUNTER → 2019-05-05 11:43 | Outpatient (CLI) | payer BC, SELFPAY ==
[2019-05-05 12:48] LABS: Add Manual Diff / Slide Review NO; Basophils Absolute Auto 0 /uL (0-100); Eosinophils Absolute Auto 100 /uL (0-450); Eosinophils Percent Auto 2.6 % (2-4); Hematocrit 39.2 % (36-46); Hemoglobin 13.4 g/dL (12.0-16.0); Lymphocytes Absolute Auto 1500 /uL (1100-4500); Lymphocytes Percent Auto 35.8 % (25-40); Mean Corpuscular HGB Conc 34.2 % (30-36); Mean Corpuscular Hemoglobin 29.6 PG (26-34); Mean Corpuscular Volume 86.7 fL (80-100); Monocytes Absolute Auto 300 /uL (0-900); Monocytes Percent Auto 8.3 % (3-14); Neutrophils Absolute Auto 2100 /uL (1500-7000); Neutrophils Percent Auto 52.3 % (50-75); Platelet Count 208 X10^3/uL (150-400); Red Blood Cell Count 4.53 X10^6/uL (4.0-5.2); Red Cell Distribution Width 12.7 % (11.6-14.8); White Blood Cell Count 4.1 X10^3/uL (4.5-11.0)
[2019-05-05 13:15] LABS: Alanine Aminotransferase 15 IU/L (<35); Albumin 4.6 g/dL (3.5-5.0); Albumin Globulin Ratio 1.5 (1.0-2.8); Alkaline Phosphatase 81 U/L (38-126); Aspartate Aminotransferase 22 IU/L (14-36); BUN Creatinine Ratio 15.7 (6-22); Bilirubin Total 0.4 mg/dL (0.2-1.3); Blood Urea Nitrogen 11 mg/dL (7-17); Calcium 9.9 mg/dL (8.4-10.2); Carbon Dioxide 26 mmol/L (22-32); Chloride 104 mmol/L (98-107); Estimated Glomerular Filt Rate > 60.0 mL/min (>60); Glucose 98 mg/dL (70-100); HEMOLYSIS < 15 (0-50); Lipase 153 U/L (23-300); Potassium 4.2 mmol/L (3.4-5.1); Sodium 139 mmol/L (137-145); Total Protein 7.6 g/dL (6.3-8.2)
[2019-05-08 14:04] LABS: Urea Breath Test >18YRS NOT DETECTED
== END ==
PROVIDERS: PCP Family Medicine; Visit Provider Family Medicine
DX: R10.9 Unspecified abdominal pain (principal); R13.10 Dysphagia, unspecified; R16.1 Splenomegaly, not elsewhere classified
CPT/HCPCS: 36415; 80053; 83013; 83690; 85025

== ENCOUNTER → 2019-08-23 15:33 | Outpatient (CLI) | payer BC, SELFPAY ==
[2019-08-23 16:41] LABS: Add Manual Diff / Slide Review NO; Basophils Absolute Auto 0 /uL (0-100); Basophils Percent Auto 1.2 % (0-2); Eosinophils Absolute Auto 100 /uL (0-450); Eosinophils Percent Auto 2.7 % (2-4); Hematocrit 37.4 % (36-46); Hemoglobin 12.7 g/dL (12.0-16.0); Lymphocytes Absolute Auto 1500 /uL (1100-4500); Lymphocytes Percent Auto 35.4 % (25-40); Mean Corpuscular Hemoglobin 30.2 PG (26-34); Mean Corpuscular Volume 88.9 fL (80-100); Monocytes Absolute Auto 300 /uL (0-900); Monocytes Percent Auto 8.1 % (3-14); Neutrophils Absolute Auto 2200 /uL (1500-7000); Neutrophils Percent Auto 52.6 % (50-75); Platelet Count 203 X10^3/uL (150-400); Red Blood Cell Count 4.21 X10^6/uL (4.0-5.2); White Blood Cell Count 4.2 X10^3/uL (4.5-11.0)
== END ==
PROVIDERS: PCP Family Medicine; Referring Provider Family Medicine; Visit Provider Family Medicine
DX: D72.819 Decreased white blood cell count, unspecified (principal)
CPT/HCPCS: 36415; 85025

== ENCOUNTER → 2019-09-05 17:07 | Outpatient (CLI) | payer BC, SELFPAY ==
--- NOTE | 2019-09-05 17:08 | DI.MRI.S_ITS ---
PROCEDURE: MR HEAD/BRAIN WO CON INDICATIONS: blurry vision, headache, dizziness TECHNIQUE: Noncontrast axial T1 spin echo, axial T2 fast spin echo, sagittal and axial FLAIR, coronal T2 fast spin echo, axial gradient echo, axial diffusion and ADC through the brain. COMPARISON: [facility], MR, MR LUMBAR SPINE WO CON, 09/05/2019, 17:33. [facility], CT, HEAD WITHOUT CONTRAST, 11/04/2016, 15:57. FINDINGS: Image quality: Excellent. CSF Spaces: Basal cisterns are patent. No extra-axial fluid collections. Ventricles are normal in size and shape. Brain: No intracranial masses or hemorrhage. Calles/white matter interface is normal. Brainstem appears normal. Diffusion-weighted images demonstrate no acute ischemic insult. No chronic ischemic insults. Normal intravascular flow voids are present. Skull and face: Calvarium has normal marrow signal. Orbits appear normal. Sinuses: Moderate mucosal thickening is seen involving the right maxillary sinus. The paranasal sinuses are otherwise relatively clear. 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 Mild S. shaped nasal septal deviation is seen. No significant abnormal mastoid air cell fluid can be seen. IMPRESSION: No imaging explanation is found for this patient's presenting symptoms. Focal right maxillary sinus disease noted. Dictated by: Lawrence Man M.D. on 09/05/2019 at 17:01 Approved by: Lawrence Man M.D. on 09/05/2019 at 17:02
--- NOTE | 2019-09-05 17:10 | DI.MRI.S_ITS ---
PROCEDURE: MR LUMBAR SPINE WO CON INDICATIONS: lumbar radiculopathy TECHNIQUE: Noncontrast sagittal T1 spin echo and T2 fast echo, sagittal STIR, axial T1 and T2 fast spin echo through the lumbar spine. In cases with scoliosis, additional coronal T2 fast spin echo may be performed. COMPARISON: [facility], MR, MR HEAD/BRAIN WO CON, 09/05/2019, 17:12. [facility], MR, L-SPINE WITHOUT CONTRAST, 01/17/2011, 20:15. FINDINGS: Image quality: Excellent. Alignment and Curvature: There is normal bony alignment. Bone Marrow: Marrow is of normal overall signal. No acute vertebral body compression fractures. Spinal Cord: Conus medullaris terminates at the L1 level. Visualized cord demonstrates normal signal and size. Paraspinous Soft Tissues: No paravertebral masses. T12-L1: Normal appearance. L1-L2: Normal appearance. L2-L3: Normal appearance. L3-L4: Normal appearance. L4-L5: The disc height is well-preserved. Loss of disc signal is seen at this level. There is a focal annular fissure seen posteriorly. Moderate generalized disc bulge is seen. Moderate facet joint hypertrophy is seen. Moderate bilateral neural foraminal narrowing is seen, left worse than right. Moderate central canal narrowing is seen. These imaging findings have progressed compared to the prior study. L5-S1: The disc height is well-preserved. Loss of disc signal is seen at this level. There is a focal annular fissure seen posteriorly. Moderate generalized disc bulge is seen. There is a central disc protrusion seen. Moderate facet joint hypertrophy is seen. Fluid is seen within the facet joints themselves. Moderate bilateral neural foraminal narrowing is seen, left worse than right. Mild central canal narrowing is seen. These imaging findings have progressed compared to the prior study. IMPRESSION: Immature lower lumbar spine degenerative changes are seen, which have progressed compared to 2011. Dictated by: Lawrence Man M.D. on 09/05/2019 at 17:02 Approved by: Lawrence Man M.D. on 09/05/2019 at 17:06
== END ==
PROVIDERS: PCP Family Medicine; Referring Provider Family Medicine; Visit Provider Family Medicine
DX: H53.8 Other visual disturbances (principal); R42 Dizziness and giddiness; R51 Headache; M51.16 Intervertebral disc disorders with radiculopathy, lumbar region; J32.0 Chronic maxillary sinusitis
CPT/HCPCS: 70551; 72148

== ENCOUNTER → 2019-10-12 15:55 | Outpatient (CLI) | payer BC, SELFPAY ==
--- NOTE | 2019-10-12 15:56 | DI.US.S_ITS ---
PROCEDURE: US SOFT TISSUE HEAD AND NECK INDICATIONS: SOFT TISSUE SWELLING CHIN TECHNIQUE: Real-time scanning was performed of the neck region of interest, with image documentation. COMPARISON: None. FINDINGS: No fluid collection or mass visualized within the soft tissues of the left neck in the region of the submandibular gland. IMPRESSION: No sonographic abnormalities. Dictated by: Kirk WILLSON Interpreted: Kush Morris MD on 10/12/2019 at 17:10 Approved by: Kush Morris M.D. on 10/12/2019 at 17:14
== END ==
PROVIDERS: PCP Family Medicine; Referring Provider Nurse Practitioner Family; Visit Provider Nurse Practitioner Family
DX: R22.1 Localized swelling, mass and lump, neck (principal)
CPT/HCPCS: 76536

== ENCOUNTER → 2020-03-01 14:47 | Outpatient (CLI) | payer BC, SELFPAY ==
--- NOTE | 2020-03-01 14:48 | DI.US.S_ITS ---
PROCEDURE: US THYROID INDICATIONS: SIX MONTH FOLLOW UP RIGHT THYROID NODULE AND NECK SWELLING TECHNIQUE: Real-time scanning was performed of the thyroid gland, with image documentation. COMPARISON: [facility], US, US THYROID, 03/15/2018, 12:33. FINDINGS: Right: Thyroid lobe measures 5.6 x 1.5 x 1.9 cm, and is homogeneous in echotexture. Left: Thyroid lobe measures 5.7 x 1.2 x 1.8 cm, and is homogenous in echotexture. Isthmus: Three mm thick. Nodule number: 1 Location: Right midpole Size: 0.6 x 0.3 x 0.7 cm. Previously 0.4 x 0.4 x 0.3 Composition: Solid Echogenicity: Hypoechoic Shape: wider than tall. Margins: Smooth Echogenic foci: Non Total points: Four ACR TI-RADS category: 4 The submandibular areas of the neck were scanned and there are no soft tissue or cystic abnormality seen. IMPRESSION: 1. 7 mm solid right thyroid nodule, slightly increased in size compared to the prior study. Despite TI-RADs category four, no further follow-up is needed given the subcentimeter size of this nodule. 2. No corresponding abnormalities to the swollen submandibular regions. ACR TI-RADS definitions and recommendations: TI-RADS 1 (benign): 0 points. FNA not needed. TI-RADS 2 (not suspicious): 2 points. FNA not needed. TI-RADS 3 (mildly suspicious): 3 points. * FNA if 2.5 cm or larger, follow up if 1.5 cm or larger (at 1, 3, and 5 years). TI-RADS 4 (moderately suspicious): 4-6 points. * FNA if 1.5 cm or larger, follow up if 1 cm or larger (at 1, 2, 3, and 5 years). TI-RADS 5 (highly suspicious): 7 points or more. * FNA if 1 cm or larger, follow up if 0.5 cm or larger (every year for 5 years). Dictated by: Kylah Shell M.D. on 03/01/2020 at 16:44 Approved by: Klyah Shell M.D. on 03/01/2020 at 16:48
== END ==
PROVIDERS: PCP Family Medicine; Referring Provider Family Medicine; Visit Provider Family Medicine
DX: E04.1 Nontoxic single thyroid nodule (principal); R22.1 Localized swelling, mass and lump, neck
CPT/HCPCS: 76536

== ENCOUNTER 2020-08-18 12:02 | Emergency (ER) | payer OTHER, BC, SELFPAY ==
[2020-08-18 12:09] VITALS: BP 119/72; PULSE 87; RESP 18; TEMP 36.3; O2SAT 100; BMI 24.4
[2020-08-18 12:41] LABS: Alanine Aminotransferase 32 IU/L (<35); Albumin 4.5 g/dL (3.5-5.0); Albumin Globulin Ratio 1.6 (1.0-2.8); Alkaline Phosphatase 45 U/L (38-126); Aspartate Aminotransferase 31 IU/L (14-36); BUN Creatinine Ratio 17.2 (6-22); Bilirubin Total 0.5 mg/dL (0.2-1.3); Blood Urea Nitrogen 11 mg/dL (7-17); Calcium 9.3 mg/dL (8.4-10.2); Carbon Dioxide 22 mmol/L (22-32); Chloride 106 mmol/L (98-107); Estimated Glomerular Filt Rate > 60.0 mL/min (>60); Globulin 2.9 g/dL (1.7-4.1); Glucose 98 mg/dL (70-100); HEMOLYSIS < 15 (0-50); Potassium 4.1 mmol/L (3.4-5.1); Sodium 137 mmol/L (137-145); Total Protein 7.4 g/dL (6.3-8.2)
[2020-08-18 12:57] LABS: Add Manual Diff / Slide Review NO; Basophils Absolute Auto 0 /uL (0-100); Basophils Percent Auto 0.9 % (0-2); Eosinophils Absolute Auto 100 /uL (0-450); Eosinophils Percent Auto 1.4 % (2-4); Hematocrit 37.8 % (36-46); Hemoglobin 12.7 g/dL (12.0-16.0); Lymphocytes Absolute Auto 1800 /uL (1100-4500); Lymphocytes Percent Auto 40.5 % (25-40); Mean Corpuscular HGB Conc 33.6 % (30-36); Mean Corpuscular Hemoglobin 30.3 PG (26-34); Mean Corpuscular Volume 89.9 fL (80-100); Monocytes Absolute Auto 400 /uL (0-900); Monocytes Percent Auto 8.6 % (3-14); Neutrophils Absolute Auto 2200 /uL (1500-7000); Neutrophils Percent Auto 48.6 % (50-75); Platelet Count 181 X10^3/uL (150-400); Red Cell Distribution Width 12.7 % (11.6-14.8); White Blood Cell Count 4.5 X10^3/uL (4.5-11.0)
[2020-08-18 12:58] LABS: HCG Quantitative /Beta subunit < 2.4 mIU/mL
--- NOTE | 2020-08-18 14:18 | ED.ABDPAIN ---
HPI - Abdominal Pain General Chief Complaint: Abdominal Pain Stated Complaint: Abd Cramps, Positive Preg Test, Tubes Tied Time Seen by Provider: 08/18/20 14:10 Source: patient Mode of arrival: Ambulatory Limitations: no limitations History of Present Illness HPI narrative: This is a 25-year-old female comes emergency department with lower abdominal cramping for the last several days. Patient states she had her menses 2 weeks ago. She states this feels similar but she is not having any bleeding or spotting. Patient denies any fevers or chills. She has had some nausea when eating large amounts of but not typically or currently. She denies any back or flank pain she denies any diarrhea constipation. No black or bloody stools. She has not had any dysuria, urgency or sense of frequency. She has not had any vaginal discharge. She states she is sexually active. She does not have any suspicion for STIs. Patient states she is otherwise healthy. She is on thyroid medication. She has had x2 tubal ligation but denies other surgeries. Related Data Home Medications Medication Instructions Recorded Confirmed clindamycin HCl 300 mg capsule 300 mg PO Q6H 02/01/20 02/01/20 Previous Rx's Medication Instructions Recorded famotidine 20 mg tablet 20 mg PO DAILY #30 tab 02/01/20 metronidazole [Flagyl] 500 mg PO BID #14 tab 08/18/20 Allergies Allergy/AdvReac Type Severity Reaction Status Date / Time cefaclor [CEFACLOR] Allergy Severe throat Verified 08/18/20 12:08 swelling Penicillins [PENICILLINS] Allergy Severe throat Verified 08/18/20 12:08 swelling Review of Systems Review of Systems ROS Unobtainable: All systems reviewed & are unremarkable except as noted in HPI and below Patient History Medical History Anxiety Bipolar disorder Constipation Depression Eczema Localized soft tissue swelling Lumbar radiculopathy PTSD (post-traumatic stress disorder) Family History Mother No problems noted. Sister No problems noted. Social History marital status: number of children: 1 household members: spouse and children lives independently: Yes caregiver/support person: No housing: house education level: vocational occupational status: student (nursing school) seatbelt use: always Smoking Status: Never smoker second hand exposure: No alcohol intake: current substance use type: marijuana Smoking Status: Never smoker alcohol intake frequency: a few times a month Substance Use Type: does not use Exam Narrative Exam Narrative: GENERAL: Alert and oriented x three, well-nourished female in mild distress. HEENT: Head normocephalic, atraumatic, EOMI, pupils reactive, face symmetric, moist mucous membranes NECK: Supple, full range of motion CARDIOVASCULAR: Regular rate and rhythm without murmurs, rubs or gallops. RESPIRATORY: Breath sounds equal bilaterally, no wheezes rales or rhonchi. ABDOMEN: Soft, nontender. Normoactive bowel sounds all 4 quadrants. No guarding or rebound, rigidity, no mass : No CVA tenderness. Female: externa vaginal exam is normal, no vaginal bleeding, positive for thin white yellow discharge, no cervical motion tenderness, normal speculum exam, no adnexal tenderness/mass. Bimanual exam is normal, no enlarged or tender uterus. Non-gravid. EXTREMITIES: Normal range of motion, no clubbing or edema. Neurovascularly intact NEUROLOGICAL: Cranial nerves II through XII grossly intact. Moving all extremities SKIN: Warm, dry, no petechiae, no rashes or lesions. Initial Vital Signs Initial Vital Signs: Vital Signs Temperature 97.3 F L 08/18/20 12:09 Pulse Rate 87 08/18/20 12:09 Respiratory Rate 18 08/18/20 12:09 Blood Pressure 119/72 08/18/20 12:09 Pulse Oximetry 100 08/18/20 12:09 Course Orders Ordered: ED Orders 08/18/20 12:23 Beta HCG, Quant [HCG Quantitative /Beta subunit] Stat Complete Blood Count AUTO DIFF Stat Comprehensive Metabolic Panel Stat 08/18/20 15:22 Chlamydia/Gonoc/Myco Genital Stat Genital Culture Stat Wet Prep Tric BV Jessy Stat Vital Signs Vital signs: Vital Signs - 8 hr 08/18/20 12:09 Temperature 97.3 F L Pulse Rate 87 Respiratory Rate 18 Blood Pressure 119/72 Pulse Oximetry 100 MDM - Abdominal Pain Lab Data Attestation: I reviewed the patient's lab results. Result diagrams: 08/18/20 12:23 08/18/20 12:23 Labs: Lab Results 08/18/20 08/18/20 Range/Units 12:23 12:23 WBC 4.5 (4.5-11.0) X10^3/uL RBC 4.20 (4.0-5.2) X10^6/uL Hgb 12.7 (12.0-16.0) g/dL Hct 37.8 (36-46) % MCV 89.9 (80-100) fL MCH 30.3 (26-34) PG MCHC 33.6 (30-36) % RDW 12.7 (11.6-14.8) % Plt Count 181 (150-400) X10^3/uL Neut % (Auto) 48.6 L (50-75) % Lymph % (Auto) 40.5 H (25-40) % Jasper % (Auto) 8.6 (3-14) % Eos % (Auto) 1.4 L (2-4) % Baso % (Auto) 0.9 (0-2) % Neut # (Auto) 2200 (3713-9943) /uL Lymph # (Auto) 1800 (6496-8718) /uL Jasper # (Auto) 400 (0-900) /uL Eos # (Auto) 100 (0-450) /uL Baso # (Auto) 0 (0-100) /uL Sodium 137 (137-145) mmol/L Potassium 4.1 (3.4-5.1) mmol/L Chloride 106 (98-107) mmol/L Carbon Dioxide 22 (22-32) mmol/L BUN 11 (7-17) mg/dL Creatinine 0.64 (0.52-1.04) mg/dL Estimated GFR > 60.0 (>60) mL/min BUN/Creatinine Ratio 17.2 (6-22) Glucose 98 (70-100) mg/dL Calcium 9.3 (8.4-10.2) mg/dL Total Bilirubin 0.5 (0.2-1.3) mg/dL AST 31 (14-36) IU/L ALT 32 (<35) IU/L Alkaline Phosphatase 45 (38-126) U/L Total Protein 7.4 (6.3-8.2) g/dL Albumin 4.5 (3.5-5.0) g/dL Globulin 2.9 (1.7-4.1) g/dL Albumin/Globulin Ratio 1.6 (1.0-2.8) HCG, Quant < 2.4 mIU/mL Point of care testing: Point of Care Testing Test Results Negative Urine Dip Bedside Urine Glucose Negative Bedside Urine Bilirubin - Negative Bedside Urine Ketone - Negative Urine Specific Tabor 1.030 Bedside Urine Occult Blood - Negative Bedside Urine pH 6 Bedside Urine Protein - Negative Bedside Urine Urobilinogen - Negative Bedside Urine Nitrite - Negative Bedside Urine Leukocytes - Negative Esterase MDM Narrative Medical decision making narrative: This is a 25-year-old female comes in with abdominal cramping and discomfort in the vaginal area. Patient does have discharge on exam. She was concerned that she may have a positive test and has had a tubal ligation. Her hCG quantitative here is negative and patient states that she left her jefh-uai-xgsspro test out and they were positive after 10-15 minute which they are known to do and were initially negative. Patient does have changes on exam consistent with possible cervicitis. She is nontender and does not have any symptoms other than abdominal cramping. Discussed with patient she prefers to not take all the antibiotics and my suspicion is higher for bacterial vaginosis based on physical exam. Plan to start her on Flagyl x1 week. Patient does know that her cultures have been sent and if positive she would be contacted for treatment but if negative we do not contact and she will check the patient portal for results. All questions were answered return precautions discussed. Discharge Plan Departure Patient Disposition: Home Clinical Impression: Cervicitis Instructions: DI for Acute Cervicitis Activity Restrictions/Additional Instructions: Follow up with Dr. Andrew for recheck. Cultures were sent and can take up to a week to return. If positive depending on which cultures are positive your partner would need to be notified and treated. You can check the patient portal for results also. Take antibiotics until completed. Do not drink alcohol while taking this antibiotic will make you sick and it will make you throw up. [facility] [place]. You may take Tylenol up to a 1000 mg every 8 hours and/or ibuprofen up to 800 mg every 8 hours as needed for pain Please return for fevers, new or worsening abdominal or pelvic pain, persistent vomiting, black or bloody stools, difficulty with urination or other new or concerning symptoms. Prescriptions: New metronidazole [Flagyl] 500 mg tablet 500 mg PO BID Qty: 14 RF: 0 No Action clindamycin HCl 300 mg capsule 300 mg PO Q6H RF: 0 famotidine 20 mg tablet 20 mg PO DAILY Qty: 30 RF: 2 Referrals: Floridalma Andrew MD [Primary Care Provider] - Stand Alone Forms: Work Release Note
[2020-08-22 12:01] LABS: Chlamydia trachomatis Negative (Negative); Mycoplasma genitalium Negative (Negative); Neisseria gonorrhoeae Negative (Negative)
== END 2020-08-18 15:41 | disposition home or self-care (01) ==
PROVIDERS: Emergency Provider Emergency Medicine; PCP Family Medicine
DX: N72 Inflammatory disease of cervix uteri (principal)
CPT/HCPCS: 36415; 80053; 81003; 81025; 84702; 85025; 87070; 87205; 87210; 87491; 87563; 87591; 99283

== ENCOUNTER 2020-09-03 00:02 | Emergency (ER) | payer OTHER, BC, SELFPAY ==
[2020-09-03 00:07] VITALS: BP 122/79; PULSE 79; RESP 18; TEMP 37.1; O2SAT 100
--- NOTE | 2020-09-03 00:19 | ED_ITS ---
HPI - Back Pain/Injury General Chief Complaint: Back Pain/Injury Stated Complaint: lock up back cant move, pain has bulging disc Time Seen by Provider: 09/03/20 00:09 Source: patient Mode of arrival: Ambulatory Limitations: no limitations History of Present Illness HPI Narrative: Patient is a 25-year-old female who has had lower back pain in the past. She has seen her primary doctor and has had an MRI per her report. She states she has known herniated discs. Over the past couple days she has noticed an increased tension in her lower back and earlier this evening she was at work when she had a sudden increase in discomfort. She states that her back ?locked up? and now she is quite a bit of discomfort with any type of movement. She does have some radiation down her right leg. No fevers. Has not tried anything for these particular symptoms prior to arrival. Related Data Home Medications Medication Instructions Recorded Confirmed clindamycin HCl 300 mg capsule 300 mg PO Q6H 02/01/20 02/01/20 Previous Rx's Medication Instructions Recorded famotidine 20 mg tablet 20 mg PO DAILY #30 tab 02/01/20 metronidazole [Flagyl] 500 mg PO BID #14 tab 08/18/20 Allergies Allergy/AdvReac Type Severity Reaction Status Date / Time cefaclor [CEFACLOR] Allergy Severe throat Verified 08/18/20 12:08 swelling Penicillins [PENICILLINS] Allergy Severe throat Verified 08/18/20 12:08 swelling Review of Systems Constitutional Constitutional: Reports system reviewed and no additional complaints, except as documented Gastrointestinal Gastrointestinal: Reports system reviewed and no additional complaints, except as documented Genitourinary Genitourinary: Reports system reviewed and no additional complaints, except as documented Musculoskeletal Musculoskeletal: Reports back pain and Reports tingling Integumentary/Breasts Skin/Breast: Denies rash Neurologic Neurologic: Reports tingling Hematologic/Lymphatic On Anticoagulants: No Patient History Medical History Anxiety Bipolar disorder Constipation Depression Eczema Localized soft tissue swelling Lumbar radiculopathy PTSD (post-traumatic stress disorder) Family History Mother No problems noted. Sister No problems noted. Social History marital status: number of children: 1 household members: spouse and children lives independently: Yes caregiver/support person: No housing: house education level: vocational occupational status: student (nursing school) seatbelt use: always Smoking Status: Never smoker second hand exposure: No alcohol intake: current substance use type: marijuana Smoking Status: Never smoker alcohol intake frequency: a few times a month Substance Use Type: does not use Exam Initial Vital Signs Initial Vital Signs: Vital Signs Temperature 98.7 F 09/03/20 00:07 Pulse Rate 79 09/03/20 00:07 Respiratory Rate 18 09/03/20 00:07 Blood Pressure 122/79 09/03/20 00:07 Pulse Oximetry 100 09/03/20 00:07 Const General: cooperative Limitations: mental status not altered HENMT Head: normal to inspection and normocephalic Resp Effort & Inspection: normal respiratory effort GI Inspection: non-distended Palpation: soft Back/Spine/Pelvis Thoracic/Lumbar Spine: No thoracic spinal tenderness and No lumbar spinal tenderness Sacroiliac Joints: tender to palpation right Skin Lesions: no lesions Rashes: no rashes Neuro General: patient alert and patient awake Extrem General: capillary refill normal Psych Appearance: grossly normal and well kempt Course Orders Ordered: Discontinued Medications Hydrocodone Bitart/Acetaminophen (Hydrocodone/Acet 5/325 Prepack) 1 bottle MISC SEEINSTR ONE Stop: 09/03/20 01:04 Last Admin: 09/03/20 01:10 Dose: 1 bottle Documented by: RONALDO Cyclobenzaprine HCl (Cyclobenzaprine 10 Mg Prepack) 1 bottle MISC SEEINSTR ONE Stop: 09/03/20 01:04 Last Admin: 09/03/20 01:10 Dose: 1 bottle Documented by: RONALDO Hydromorphone HCl (Hydromorphone 1 Mg Inj) 1 mg IM NOW ONE Stop: 09/03/20 00:21 Last Admin: 09/03/20 00:28 Dose: 1 mg Documented by: ROBBIE Ketorolac Tromethamine (Ketorolac 30 Mg/Ml Vial) 30 mg IM NOW ONE Stop: 09/03/20 00:21 Last Admin: 09/03/20 00:28 Dose: 30 mg Documented by: ROBBIE Vital Signs Vital signs: Vital Signs - 8 hr 09/03/20 00:07 09/03/20 01:22 Temperature 98.7 F Pulse Rate 79 75 Respiratory Rate 18 16 Blood Pressure 122/79 107/71 Pulse Oximetry 100 97 MDM - Back Pain/Injury MDM Narrative Medical decision making narrative: Low suspicion for cauda equina. Low suspicion for fracture. Low suspicion for abscess/hematoma. She did have some improvement after medications administered here in the emergency department. She has known disc disease in her lower spine. Had a long discussion with her regarding lower back pain. Did inform her that most lower back pain does get better on its own with time. We did discuss the use of anti-inflammatories. Will send home with symptom control although she was informed that this could potentially take days/weeks for symptoms to improve. She has already had a referral in for Orthopedics and she was given their phone number for follow-up. She was given return precautions. She expressed understanding and agreement. Discharge Plan Departure Patient Disposition: Home Clinical Impression: Lower back pain Instructions: DI for Low Back Pain Activity Restrictions/Additional Instructions: Recommend that you contact the [facility] at [phone]. You can use heat/ice and light stretching. The mainstay of therapy for lower back pain is anti-inflammatories such as Motrin/Naprosyn. Be sure to take this with some food as it can irritate your stomach. You can also take Tylenol as well. Most lower back pain does get better on its own but sometimes it can take weeks. Try to stay as active as possible. Contact your primary provider for follow-up. Return to the emergency department for any new or worsening symptoms. Prescriptions: No Action clindamycin HCl 300 mg capsule 300 mg PO Q6H RF: 0 famotidine 20 mg tablet 20 mg PO DAILY Qty: 30 RF: 2 metronidazole [Flagyl] 500 mg tablet 500 mg PO BID Qty: 14 RF: 0 Referrals: Floridalma Andrew MD [Primary Care Provider] - Stand Alone Forms: Work Release Note
[2020-09-03] MEDS: KETOROLAC 30 MG/ML VIAL IM (00:28)
[2020-09-03] MEDS: HYDROMORPHONE 1 MG INJ IM (00:28)
[2020-09-03] MEDS: HYDROCODONE/ACET 5/325 PREPACK 1 BOTTLE MISC (01:10)
[2020-09-03] MEDS: CYCLOBENZAPRINE 10 MG PREPACK 1 BOTTLE MISC (01:10)
[2020-09-03 01:22] VITALS: BP 107/71; PULSE 75; RESP 16; O2SAT 97
== END 2020-09-03 01:22 | disposition home or self-care (01) ==
PROVIDERS: Emergency Provider Emergency Medicine; PCP Family Medicine
DX: M54.5 Low back pain (principal)
CPT/HCPCS: 96372; 99283; 99284; J1170; J1885

== ENCOUNTER → 2020-09-26 10:11 | Outpatient (CLI) | payer OTHER, BC, SELFPAY | PROVIDERS: PCP Family Medicine; Visit Provider Family Medicine | DX: J02.9 Acute pharyngitis, unspecified (principal) | CPT/HCPCS: 87070 ==

== ENCOUNTER → 2020-10-11 16:25 | Outpatient (CLI) | payer OTHER, BC, SELFPAY ==
--- NOTE | 2020-10-11 16:29 | DI.US.S_ITS ---
PROCEDURE: US PELVIC COMPLETE INDICATIONS: menorrhagia TECHNIQUE: Real-time scanning was performed of the pelvic organs, with image documentation. Additional endovaginal scanning was necessary due to incomplete visualization of the adnexal and endometrial structures by transabdominal scanning. COMPARISON: [facility], , PELVIC COMPLETE, 03/10/2015, 11:47. FINDINGS: Uterus: Uterus is retroverted and normal in size at 4.8 x 4.0 x 4.7 cm. No myometrial mass. The endometrium measures 10 mm in combined thickness. There is a single tiny endometrial cyst. Ovaries: The right ovary measures 2.9 x 3.9 x 2.6 cm for a volume of 15.3 cc. The left ovary measures 2.0 x 1.6 x 2.0 cm for a volume of 3.3 cc. The right ovary demonstrates an involuting follicle with peripheral hypervascularity measuring about 1.7 cm. Other: No pathologic free abdominal or pelvic fluid. Moderate amount of physiologic fluid is present around the uterine fundus. IMPRESSION: 1. Involuting right ovarian corpus luteum. 2. Normal morphology of the retroverted uterus. Dictated by: Kylah Shell M.D. on 10/12/2020 at 9:14 Approved by: Kylah Shell M.D. on 10/12/2020 at 9:40
== END ==
PROVIDERS: PCP Family Medicine; Referring Provider Family Medicine; Visit Provider Family Medicine
DX: N92.0 Excessive and frequent menstruation with regular cycle (principal); N83.11 Corpus luteum cyst of right ovary
CPT/HCPCS: 76830; 76856

== ENCOUNTER → 2021-12-30 10:16 | Outpatient (CLI) | payer BC, SELFPAY ==
--- NOTE | 2022-01-20 11:31 | P.HOLT.S_ITS ---
Production Department Supervisor Report Referral & Results Date Patient Seen: 12/30/21 Requesting provider: Floridalma Anrdew Indication: Palpitations Duration of monitoring (days): 14 Diary information: There were 13 patient triggered events and no patient diary entries All of these patient events were associated with sinus rhythm only Data: Minimum heart rate identified was 50 beats per minute at 04:41 on 01/03/2022 Maximum heart rate was 161 beats per minute and was sinus tachycardia at 23:25 on 01/08/2022 Less than 1% of identified beats were ventricular or supraventricular ectopic in origin, which would classify them as rare. There was 1 run of SVT that was 4 beats in duration at a rate of 135 beats per minute which suggest more likely atrial tachycardia rather than true SVT There were no episodes of atrial fibrillation or pauses of 3 seconds or longer identified on this study Impression: 14 day school lunch monitor demonstrating no specific dysrhythmia associated with patient reported symptoms Clinical correlation suggested
== END ==
PROVIDERS: PCP Family Medicine; Referring Provider Family Medicine; Visit Provider Family Medicine
DX: R00.2 Palpitations (principal)
CPT/HCPCS: 93246; 93248

== ENCOUNTER → 2022-05-06 12:12 | Outpatient (CLI) | payer BC, SELFPAY | PROVIDERS: PCP Family Medicine; Visit Provider Physician Assistant Medical | DX: R30.0 Dysuria (principal) | CPT/HCPCS: 87077; 87086; 87186 ==

== ENCOUNTER → 2022-05-16 17:10 | Outpatient (CLI) | payer BC, SELFPAY ==
[2022-05-16 18:04] LABS: Influenza A - CEPHEID Flu A NEGATIVE (NEGATIVE); Influenza B - CEPHEID Flu B NEGATIVE (NEGATIVE); Respiratory Syncytial Virus Negative (Negative)
[2022-05-16 18:07] LABS: COVID-19 CEPHEID 4-PLEX PCR Negative (Negative)
== END ==
PROVIDERS: PCP Family Medicine; Visit Provider Student in an Organized Health Care Education/Training Program
DX: J06.9 Acute upper respiratory infection, unspecified (principal); Z20.822 Contact with and (suspected) exposure to COVID-19
CPT/HCPCS: 0241U

== ENCOUNTER → 2022-07-09 11:33 | Outpatient (CLI) | payer BC, SELFPAY ==
[2022-07-09 12:59] LABS: Free T3, Triiodothyronine Free 3.51 pg/mL (2.77-5.27); Free T4, Direct Thyroxine 0.89 ng/dL (0.78-2.19)
== END ==
PROVIDERS: PCP Family Medicine; Referring Provider Family Medicine; Visit Provider Family Medicine
DX: E04.1 Nontoxic single thyroid nodule (principal)
CPT/HCPCS: 36415; 84439; 84443; 84481

== ENCOUNTER → 2024-01-20 14:34 | Outpatient (CLI) | payer SELFPAY | PROVIDERS: PCP Family Medicine; Visit Provider Family Medicine | DX: N89.8 Other specified noninflammatory disorders of vagina (principal) | CPT/HCPCS: 87210 ==

== ENCOUNTER → 2024-01-20 14:35 | Outpatient (CLI) | payer SELFPAY ==
[2024-01-20 15:06] LABS: Add Manual Diff / Slide Review NO; Basophils Absolute Auto 0 /uL (0-100); Basophils Percent Auto 0.8 % (0-2); Eosinophils Absolute Auto 100 /uL (0-450); Eosinophils Percent Auto 2.3 % (2-4); Hematocrit 35.5 % (36-46); Hemoglobin 12.2 g/dL (12.0-16.0); Lymphocytes Absolute Auto 1300 /uL (1100-4500); Lymphocytes Percent Auto 28.2 % (25-40); Mean Corpuscular HGB Conc 34.3 % (30-36); Mean Corpuscular Volume 90.4 fL (80-100); Monocytes Absolute Auto 400 /uL (0-900); Monocytes Percent Auto 7.7 % (3-14); Neutrophils Absolute Auto 2900 /uL (1500-7000); Platelet Count 213 X10^3/uL (150-400); Red Blood Cell Count 3.93 X10^6/uL (4.0-5.2); Red Cell Distribution Width 12.7 % (11.6-14.8); White Blood Cell Count 4.7 X10^3/uL (4.5-11.0)
[2024-01-20 22:35] LABS: Testosterone 12.4 ng/dL (5.71-77.0)
[2024-01-21 02:38] LABS: HSV 2 IGG AB < 0.91 index (0.00-0.90)
[2024-01-21 05:15] LABS: RPR Screen Non Reactive (Non Reactive)
[2024-01-21 17:15] LABS: Hepatitis B Surface Antigen NEGATIVE s/c (NEGATIVE)
[2024-01-21 17:49] LABS: HIV 1 & 2 Ab/Ag 4th Gen Combo NEGATIVE (NEGATIVE); Hep C Virus Ab w/Reflex Quant NEGATIVE s/c (NEGATIVE)
== END ==
PROVIDERS: PCP Family Medicine; Referring Provider Family Medicine; Visit Provider Family Medicine
DX: N92.0 Excessive and frequent menstruation with regular cycle (principal); Z11.3 Encounter for screening for infections with a predominantly sexual mode of transmission
CPT/HCPCS: 36415; 83036; 83525; 84403; 84443; 85025; 86592; 86695; 86696; 86803; 87340; 87389

== ENCOUNTER → 2024-05-11 11:23 | Outpatient (CLI) | payer BC, SELFPAY ==
--- NOTE | 2024-05-11 11:24 | DI.US.S_ITS ---
PROCEDURE: US ABDOMEN LIMITED INDICATIONS: RIGHT UPPER QUADRANT PAIN TECHNIQUE: Real-time scanning was performed of the abdominal and retroperitoneal organs, with image documentation. COMPARISON: , , US ABDOMEN LIMITED, 04/28/2019, 9:59. FINDINGS: Liver: Liver is normal in size and homogeneous in echotexture. Gallbladder: No gallstones. No wall thickening. No pericholecystic edema. Negative sonographic London's sign. Biliary ducts: Intrahepatic bile ducts are non-dilated. Extrahepatic bile duct caliber measures 3.2 mm. Normal is 6-7 mm or less in diameter, or 10 mm or less post-cholecystectomy. Pancreas: Visualized portions of the pancreas are sonographically normal. Miscellaneous: No free abdominal fluid. IMPRESSION: Unremarkable right upper quadrant ultrasound. No gallstone disease. Dictated by: Tapan Yadav M.D. on 05/11/2024 at 12:07 Approved by: Tapan Yadav M.D. on 05/11/2024 at 12:08
[2024-05-11 11:53] LABS: Add Manual Diff / Slide Review NO; Basophils Absolute Auto 0 /uL (0-100); Basophils Percent Auto 0.7 % (0-2); Eosinophils Absolute Auto 100 /uL (0-450); Eosinophils Percent Auto 2.2 % (2-4); Hematocrit 40.8 % (36-46); Hemoglobin 13.8 g/dL (12.0-16.0); Lymphocytes Absolute Auto 1600 /uL (1100-4500); Lymphocytes Percent Auto 36.5 % (25-40); Mean Corpuscular HGB Conc 33.9 % (30-36); Mean Corpuscular Hemoglobin 30.8 PG (26-34); Mean Corpuscular Volume 90.7 fL (80-100); Monocytes Absolute Auto 400 /uL (0-900); Monocytes Percent Auto 8.4 % (3-14); Neutrophils Absolute Auto 2300 /uL (1500-7000); Neutrophils Percent Auto 52.2 % (50-75); Platelet Count 241 X10^3/uL (150-400); Red Cell Distribution Width 12.1 % (11.6-14.8); White Blood Cell Count 4.4 X10^3/uL (4.5-11.0)
[2024-05-11 12:18] LABS: Alanine Aminotransferase 17 IU/L (<35); Albumin 4.8 g/dL (3.5-5.0); Albumin Globulin Ratio 1.8 (1.0-2.8); Alkaline Phosphatase 45 U/L (38-126); Amylase 68 U/L (30-110); Aspartate Aminotransferase 23 IU/L (14-36); BUN Creatinine Ratio 13.2 (6-22); Bilirubin Total 0.5 mg/dL (0.2-1.3); Blood Urea Nitrogen 10 mg/dL (7-17); Calcium 9.7 mg/dL (8.4-10.2); Carbon Dioxide 26 mmol/L (22-32); Chloride 106 mmol/L (98-107); Estimated Glomerular Filt Rate > 60 mL/min (>60); Globulin 2.7 g/dL (1.7-4.1); Glucose 98 mg/dL (70-100); HEMOLYSIS < 15 (0-50); Lipase 161 U/L (23-300); Potassium 4.9 mmol/L (3.4-5.1); Sodium 138 mmol/L (137-145); Total Protein 7.5 g/dL (6.3-8.2)
== END ==
PROVIDERS: PCP Family Medicine; Referring Provider Family Medicine; Visit Provider Family Medicine
DX: R10.11 Right upper quadrant pain (principal)
CPT/HCPCS: 36415; 76705; 80053; 82150; 83690; 85025

== ENCOUNTER 2024-06-09 16:10 | Emergency (ER) | payer BC, SELFPAY ==
[2024-06-09 16:14] VITALS: BP 118/70; PULSE 74; RESP 16; TEMP 36.9; O2SAT 100; BMI 25.0
== END 2024-06-09 18:35 | disposition left against medical advice (07) ==
PROVIDERS: Emergency Provider Emergency Medicine; PCP Family Medicine
DX: R19.7 Diarrhea, unspecified (principal); R11.10 Vomiting, unspecified
CPT/HCPCS: 81003; 81025; 99282

== ENCOUNTER → 2024-08-15 16:29 | Outpatient (CLI) | payer BC, SELFPAY ==
[2024-08-15 18:23] LABS: Urine N gonorrhoeae NOT DETECTED
[2024-08-15 18:26] LABS: Urine Chlamydia NOT DETECTED
== END ==
PROVIDERS: PCP Family Medicine; Visit Provider Nurse Practitioner Family
DX: N89.8 Other specified noninflammatory disorders of vagina (principal)
CPT/HCPCS: 87077; 87086; 87210; 87491; 87591